=== PATIENT | male | born 1985 | race Caucasian/White ===

== ENCOUNTER 2020-09-08 17:15 | Emergency (ER) | payer MEDICARE, MEDICAID ==
[~2020-09-08] VITALS: Ht 177.8 cm; Wt 72.7 kg
[2020-09-08] MEDS ORDERED: diphenhydrAMINE 50 MG/ML VIAL IVP ONE (19:30)
[2020-09-08] MEDS ORDERED: IV NORMAL SALINE 1000ML BAG 1,000 ML IV ONE (19:30)
[2020-09-08] MEDS ORDERED: DEXAMETHASONE SOD PHOS 20 MG/5 ML VIAL. IV ONE (19:30)
[2020-09-08] MEDS ORDERED: PROCHLORPERAZINE 10 MG/2 ML VIAL. IV ONE (19:30)
[2020-09-08 20:13] VITALS: BP 114/75
--- NOTE | 2020-09-08 20:29 | RAD ---
CT head without contrast and CT maxillofacial without contrast dated 09/08/2020. No comparison available. CLINICAL INDICATION: Pain after injury. TECHNIQUE: Continues axial imaging the head was performed from skull base to vertex. No contrast administered. I n addition, axial imaging the maxillary facial bones obtained with thin cut coronal and sagittal jayashree nstruction. One or more of the following individualized dose reduction techniques were utilized for this examinat ion: 1. Automated exposure control 2. Adjustment of the mA and/or kV according to patient size 3. Use of iterative reconstruction technique. FINDINGS: Ventricles and sulci are within normal limits for age. No midline shift or mass effect. Brain parench yma is of normal attenuation. No hemorrhage or extra-axial collection. Posterior fossa and brainstem unremarkable. No apparent calvarial abnormality. Subtotal opacification of the left maxillary sinus. There is deformity of the anterior wall and later al wall consistent with old healed fracture. There is plate and screw fixation of the anterior wall l eft maxillary sinus with plate and screw fixation of the superior lateral wall of the left orbit. No acute fracture. Deformity of the bilateral nasal bone, likely related to old healed fracture. There i s also some irregularity of the medial wall of the left maxillary sinus with occlusion of the left os alfred unit. Mandible is intact. IMPRESSION: 1. No evidence of acute intracranial hemorrhage or mass. 2. No apparent acute facial fracture. There are remote healed fractures of the anterior lateral wall of left maxillary sinus and supraorbital region on the left. There are also probable old healed bilat eral nasal bone fractures. 3. Subtotal opacification of the left maxillary sinus with occlusion of the left ostiomeatal unit. Paranasal sinuses and mastoid air cells are otherwise clear. No significant soft tissue abnormality. Electronically signed by: Sean Nguyen MD (09/08/2020 8:26 PM) [facility]
[2020-09-08] MEDS ORDERED: KETOROLAC 30 MG/ML VIAL. IV ONE (20:30)
[2020-09-08] MEDS ORDERED: BUTA1TAB23 PO (20:55)
--- NOTE | 2020-09-08 20:56 | ED.ADGEN ---
Past Medical History Past Medical History: No Pertinent History Past Surgical History: Other Additional Past Surgical Histo: FACIAL RECONSTRUCTIVE SURGERY Smoking Status: Never Smoker Alcohol Use: Occasionally General Adult EDM: Chief Complaint: HEAD, FACE, NECK, TRAUMA HPI: HPI: Patient is a 35 year old male who presents to the emergency department with complaints of severe pain to the left side of his head after accidentally hittin g his head on a board today while working on a fence. Patient denies loss of consciousness however he states that he saw black for a brief second. Patient did not fall or pass out after the injury, but reports that he was feeling dizzy.. He denies any vomiting, numbness, tingling, or weakness. Patient denies any neck pain. Patient reports that his vision was blurry and that he is sensitive to light as the headache is progressed. Patient reports history of previous facial trauma with screws in the left side of his face. He currently rates his pain a 10 out of 10 on the pain scale, he denies any alleviating factors, the pain is worse with exposure to light. Review of Systems: Review of Systems: Complete ROS is negative unless otherwise noted in HPI. Current Medications: Current Medications Medications (Trade) Dose Ordered Sig/Irasema Start Time Stop Time Status Last Admin Dose Admin Dexamethasone Sodium Phosphate (Decadron) 10 mg 1X ONCE 09/08/20 19:30 09/08/20 19:34 DC 09/08/20 19:39 10 MG Diphenhydramine HCl (Benadryl) 25 mg 1X ONCE 09/08/20 19:30 09/08/20 19:34 DC 09/08/20 19:38 25 MG Ketorolac Tromethamine (Toradol 30mg Vial) 30 mg 1X ONCE 09/08/20 20:30 09/08/20 20:31 DC 09/08/20 20:31 30 MG Prochlorperazine Edisylate (Compazine) 10 mg 1X ONCE 09/08/20 19:30 09/08/20 19:34 DC 09/08/20 19:38 10 MG Sodium Chloride 1,000 ml @ 1,000 mls/hr 1X ONCE 09/08/20 19:30 09/08/20 20:29 DC 09/08/20 19:39 1,000 MLS/HR Allergies: Allergies: Allergies Coded Allergies Type Severity Reaction Last Updated Verified hydromorphone Allergy Severe ITCHING 09/08/20 Yes Physical Exam: PE: See Above Constitutional: Well developed, well nourished, no acute distress, non-toxic a ppearance. [] HENT: Normocephalic, bilateral external ears normal, nose normal; abrasion to left rastafari, no active bleeding, no swelling. [] Eyes: PERRLA, EOMI, conjunctiva normal, no discharge, photosensitivity present. [] Neck: Normal range of motion, supple, nontender, no stridor. [] Cardiovascular:Heart rate regular rhythm Lungs & Thorax: Respirations even and unlabored, no retractions, no respiratory distress Skin: Warm, dry, no erythema, no rash. [] Extremities: No cyanosis, ROM intact, no edema. [] Neurologic: Alert and oriented X 3, normal motor, normal sensory, no focal deficits noted. [] Psychologic: Affect normal, judgement normal, mood normal. [] Current Patient Data: Vital Signs: Vital Signs Date Time Temp Pulse Resp B/P (MAP) Pulse Ox O2 Delivery O2 Flow Rate FiO2 09/08/20 17:49 97.0 88 18 109/74 (86) 99 Room Air 97.0 EKG: EKG: [] Heart Score: C/O Chest Pain: No Risk Scores: Score 0 - 3: 2.5% MACE over next 6 weeks - Discharge Home Score 4 - 6: 20.3% MACE over next 6 weeks - Admit for Clinical Observation Score 7 - 10: 72.7% MACE over next 6 weeks - Early Invasive Strategies Radiology/Procedures: Radiology/Procedures: PROCEDURE: CT HEAD AND MAXILLOFACIAL WO CT head without contrast and CT maxillofacial without contrast dated 09/08/2020. No comparison available. CLINICAL INDICATION: Pain after injury. TECHNIQUE: Continues axial imaging the head was performed from skull base to vertex. No contrast administered. In addition, axial imaging the maxillary facial bones obtained with thin cut coronal and sagittal reconstruction. One or more of the following individualized dose reduction techniques were utilized for this examination: 1. Automated exposure control 2. Adjustment of the mA and/or kV according to patient size 3. Use of iterative reconstruction technique. FINDINGS: Ventricles and sulci are within normal limits for age. No midline shift or mass effect. Brain parenchyma is of normal attenuation. No hemorrhage or extra-axial collection. Posterior fossa and brainstem unremarkable. No apparent calvarial abnormality. Subtotal opacification of the left maxillary sinus. There is deformity of the anterior wall and lateral wall consistent with old healed fracture. There is plate and screw fixation of the anterior wall left maxillary sinus with plate and screw fixation of the superior lateral wall of the left orbit. No acute fracture. Deformity of the bilateral nasal bone, likely related to old healed fracture. There is also some irregularity of the medial wall of the left maxillary sinus with occlusion of the left ostomy unit. Mandible is intact. IMPRESSION: 1. No evidence of acute intracranial hemorrhage or mass. 2. No apparent acute facial fracture. There are remote healed fractures of the anterior lateral wall of left maxillary sinus and supraorbital region on the left. There are also probable old healed bilateral nasal bone fractures. 3. Subtotal opacification of the left maxillary sinus with occlusion of the left ostiomeatal unit. Paranasal sinuses and mastoid air cells are otherwise clear. No significant soft tissue abnormality. [] Course & Med Decision Making: Course & Med Decision Making Pertinent Labs and Imaging studies reviewed. (See chart for details) 35-year-old male presented to the emergency department with complaints of a severe headache after hitting his head on the board today. Patient was given a liter normal saline 10 mg of Compazine, 25 mg of Benadryl, and 10 mg of Decadron, his headache improved greatly but remained. The patient was given 30 mg of Toradol and reported that the headache went away completely. CT of the patient's head did not reveal any acute bleed or fracture. Prescription was written for Fioricet. Recommended patient follow-up in the next 1 to 2 days with his primary care doctor, return to the ER if symptoms worsen or fever develops. Patient verbalized an understanding of home care, medications, follow-up, and return to ED instructions and was in agreement with the plan of care. [] Dragon Disclaimer: Dragon Disclaimer: This electronic medical record was generated, in whole or in part, using a voice recognition dictation system. Departure Departure Impression: Primary Impression: Left-sided headache Additional Impression: Head injury, acute, without loss of consciousness Disposition: 01 DC HOME SELF CARE/HOMELESS Condition: STABLE Referrals: NO PCP (PCP) Patient Instructions: Head Injury, Adult, [id number] Additional Instructions: Fill the prescription and use it as directed. Tylenol or ibuprofen as needed for pain. Follow the head injury precautions provided. Follow up with your primary care doctor in 1-2 days. Return to the ER if symptoms worsen. Scripts Butalb/Acetaminophen/Caffeine ([id number] [id number]) 1 Each Tablet 1-2 EACH PO Q4HRS PRN for PAIN MDD 6 tabs for 3 Days, #18 TAB 0 Refills Prov: DANIEL KATE SIGN DESIGNER 09/08/20 Problem Qualifiers Additional Impression: Head injury, acute, without loss of consciousness Encounter type: initial encounter Qualified Codes: S09.90XA - Unspecified injury of head, initial encounter DANIEL KATE SIGN DESIGNER Sep 08, 2020 20:56
== END 2020-09-08 21:06 | disposition home or self-care (01) ==
LOC: ER 17:15
DX: S09.8XXA Other specified injuries of head, initial encounter (principal); R42 Dizziness and giddiness; R51.9 Headache, unspecified; R20.2 Paresthesia of skin; Z88.5 Allergy status to narcotic agent; Z98.890 Other specified postprocedural states; W22.8XXA Striking against or struck by other objects, initial encounter; Y93.89 Activity, other specified; Y92.89 Other specified places as the place of occurrence of the external cause; Y99.0 Civilian activity done for income or pay
CPT/HCPCS: 70450; 70486; 96361; 96374; 96375; 99285; J0780; J1100; J1200; J1885; J7030

== ENCOUNTER 2020-11-14 13:25 | Emergency (ER) | payer MEDICARE, MEDICAID ==
[~2020-11-14] VITALS: Ht 177.8 cm; Wt 75.0 kg
[~2020-11-14 13:25] MED LIST: BUTA1TAB23 PO
--- NOTE | 2020-11-14 13:56 | PHYS DOC ---
Past Medical History Past Medical History: No Pertinent History Past Surgical History: Other Additional Past Surgical Histo: FACIAL RECONSTRUCTIVE SURGERY Smoking Status: Never Smoker Alcohol Use: Occasionally General Adult EDM: Chief Complaint: MECHANICAL FALL HPI: HPI: Patient is a 35 year old male with history of chronic low back pain who presents to the ED today complaining of 10 out of 10 bilateral low back pain radiating to bilateral lower extremities, symptoms began 2 weeks ago after he fell off a 8 foot ladder. Patient denies any loss of consciousness when he fell. Denies hitting his head on the ground. Denies any neck pain. States his pain on the low back is worse on certain movements. Denies anything relieving the pain. Review of Systems: Review of Systems: Constitutional: Denies fever or chills. [] GI: Denies abdominal pain, nausea, vomiting, bloody stools or diarrhea. [] : Denies dysuria. [] Musculoskeletal: Reports low back pain radiating to bilateral lower extremities Integument: Denies rash. [] Neurologic: Denies headache, focal weakness or sensory changes. [] Psychiatric: Denies depression or anxiety. [] Heart Score: C/O Chest Pain: N/A Risk Factors: Risk Factors: DM, Current or recent (<one month) smoker, HTN, HLP, family history of CAD, obesity. Risk Scores: Score 0 - 3: 2.5% MACE over next 6 weeks - Discharge Home Score 4 - 6: 20.3% MACE over next 6 weeks - Admit for Clinical Observation Score 7 - 10: 72.7% MACE over next 6 weeks - Early Invasive Strategies Allergies: Allergies: Allergies Coded Allergies Type Severity Reaction Last Updated Verified hydromorphone Allergy Severe ITCHING 09/08/20 Yes Physical Exam: PE: Constitutional: Well developed, well nourished, no acute distress, non-toxic appearance. [] Neck: Normal range of motion, no tenderness, supple, no stridor. [] Abdomen: Bowel sounds normal, soft, no tenderness, no masses, no pulsatile masses. [] Skin: Warm, dry, no erythema, no rash. [] Back: Diffuse paraspinal muscle tenderness to bilateral lumbar spine including some midline lumbar spine tenderness, no CVA tenderness. [] Extremities: No tenderness, no cyanosis, no clubbing, ROM intact, no edema. [] Neurologic: Alert and oriented X 3, normal motor function, normal sensory function, no focal deficits noted. [] Psychologic: Affect normal, judgement normal, mood normal. [] EKG: EKG: [] Radiology/Procedures: Radiology/Procedures: []PROCEDURE: CT LUMBAR SPINE WO CONTRAST EXAM: Lumbar spine CT without contrast. HISTORY: Fall. TECHNIQUE: Computed tomographic images of the lumbar spine were obtained without contrast. Multiplanar reformatting was performed. *One or more of the following individualized dose reduction techniques were utilized for this examination: 1. Automated exposure control. 2. Adjustment of the mA and/or kV according to patient size. 3. Use of iterative reconstruction technique. COMPARISON: None. FINDINGS: There are hypoplastic T12 ribs and 5 nonrib-bearing lumbar segments. There is grade 1 anterolisthesis of L5 on S1, measuring 2 mm. There is a large superior endplate Schmorl's node at L4 and there are small inferior endplate Schmorl's nodes at L3. There is no fracture or suspicious osseous lesion. There is minimal degenerative change involving the left sacroiliac joint. There is no acute finding involving the visualized abdominal and pelvic visceral and vascular structures. At L1-L2 and L2-L3, there is no stenosis. At L3-L4, there is a disc bulge. There is endplate remodeling. There is minimal central canal stenosis. At L4-5, there is a disc bulge. There is minimal central canal stenosis. At L5-S1, there is grade 1 anterolisthesis. There is no stenosis. IMPRESSION: 1. No acute osseous finding or significant foraminal or central canal stenosis. 2. Mild multilevel degenerative change. Electronically signed by: Raven Mclaughlin MD (11/14/2020 2:54 PM) [facility] DICTATED and SIGNED BY: RAVEN MCLAUGHLIN MD DATE: 11/14/20 [id number] 0 Course & Med Decision Making: Course & Med Decision Making Pertinent Labs and Imaging studies reviewed. (See chart for details) This is a 35-year-old male patient presenting to the ED today to be evaluated for low back pain after falling off an 8 foot ladder 2 weeks ago. Denies any head or neck pain. CT of the lumbar spine is negative for any acute findings. Patient has multiple visits at [facility] and most of them are pain related. Upon discharge informed patient I will send him home, he asked if he can have narcotics, informed him he would not have any narcotics. I offered him naproxen, Flexeril, Medrol Dosepak and gabapentin Dragon Disclaimer: Raquel Disclaimer: This electronic medical record was generated, in whole or in part, using a voice recognition dictation system. Departure Departure Impression: Primary Impression: Fall Qualified Codes: W19.XXXA - Unspecified fall, initial encounter Additional Impression: Low back pain Qualified Codes: M54.42 - Lumbago with sciatica, left side; M54.41 - Lumbago with sciatica, right side Disposition: HOME / SELF CARE / HOMELESS Condition: STABLE Referrals: NO PCP (PCP) follow up with your doctor next week Patient Instructions: Back Pain, Adult, Fall Prevention and Home Safety, [id number] Additional Instructions: You have back pain your Ct of the low back is negative. Please follow-up with your primary care doctor with Scripts Gabapentin (GABAPENTIN ) 300 Mg Capsule 300 MG PO TID for NEUROGENIC PAIN, #30 CAP Prov: BRENDA PETTY APRN 11/14/20 Methylprednisolone (MEDROL) 4 Mg Tab.ds.pk 1 PKG PO UD, #1 PKG Prov: BREDNA PETTY APRN 11/14/20 Cyclobenzaprine Hcl (CYCLOBENZAPRINE HCL) 10 Mg Tablet 1 TAB PO TID, #30 TAB Prov: BRENDA PETTY APRN 11/14/20 Naproxen (NAPROXEN) 500 Mg Tablet 1 TAB PO BID for pain, #30 TAB 0 Refills Prov: BRENDA PETTY APRN 11/14/20 BRENDA PETTY APRN Nov 14, 2020 13:56
[2020-11-14] MEDS ORDERED: NAPROXEN 500 MG TABLET PO STA (14:17)
[2020-11-14] MEDS ORDERED: HYDROcodone/APAP 5/325MG 1 TAB TABLET PO ONE (14:30)
[2020-11-14] MEDS ORDERED: CYCLOBENZAPRINE 10 MG TABLET. PO ONE (14:30)
--- NOTE | 2020-11-14 14:56 | RAD ---
EXAM: Lumbar spine CT without contrast. HISTORY: Fall. TECHNIQUE: Computed tomographic images of the lumbar spine were obtained without contrast. Multiplana r reformatting was performed. *One or more of the following individualized dose reduction techniques were utilized for this examina tion: 1. Automated exposure control. 2. Adjustment of the mA and/or kV according to patient size. 3. Use of iterative reconstruction technique. COMPARISON: None. FINDINGS: There are hypoplastic T12 ribs and 5 nonrib-bearing lumbar segments. There is grade 1 anter olisthesis of L5 on S1, measuring 2 mm. There is a large superior endplate Schmorl's node at L4 and t here are small inferior endplate Schmorl's nodes at L3. There is no fracture or suspicious osseous le bony. There is minimal degenerative change involving the left sacroiliac joint. There is no acute finding i nvolving the visualized abdominal and pelvic visceral and vascular structures. At L1-L2 and L2-L3, there is no stenosis. At L3-L4, there is a disc bulge. There is endplate remodeling. There is minimal central canal stenosi s. At L4-5, there is a disc bulge. There is minimal central canal stenosis. At L5-S1, there is grade 1 anterolisthesis. There is no stenosis. IMPRESSION: 1. No acute osseous finding or significant foraminal or central canal stenosis. 2. Mild multilevel degenerative change. Electronically signed by: Raven Mclaughlin MD (11/14/2020 2:54 PM) [facility]
[2020-11-14 15:44] VITALS: BP 106/73
[2020-11-14] MEDS ORDERED: CYCL10TA2 PO (16:45)
[2020-11-14] MEDS ORDERED: NAPR-514 PO (16:45)
[2020-11-14] MEDS ORDERED: METH4TAB2 PO (16:45)
[2020-11-14] MEDS ORDERED: GABA300C18 PO (16:45)
== END 2020-11-14 17:10 | disposition home or self-care (01) ==
LOC: ER 13:25
DX: M54.41 Lumbago with sciatica, right side (principal); M54.42 Lumbago with sciatica, left side; G89.29 Other chronic pain; G89.11 Acute pain due to trauma; Z88.5 Allergy status to narcotic agent; W18.39XA Other fall on same level, initial encounter; Y93.79 Activity, other specified sports and athletics; Y92.89 Other specified places as the place of occurrence of the external cause; Y99.8 Other external cause status
CPT/HCPCS: 72131; 99285-25